=== PATIENT | male | born 1975 | race Caucasian/White ===

== ENCOUNTER 2019-02-18 14:40 | Emergency (ER) | payer SELFPAY ==
[~2019-02-18] VITALS: Ht 185.4 cm; Wt 113.4 kg
[2019-02-18] MEDS ORDERED: DOPamine 1600mCg/ml 400MG/250ml NSorD5 KIT/BAG IV ONE (14:41)
[2019-02-18] MEDS ORDERED: EPINEPHrine HCL 1 MG/10 ML SYRG IV ONE (14:41)
[2019-02-18] MEDS ORDERED: CALCIUM CHLOR(10%) 100MG/ML 10ML SYRINGE IV ONE (14:41)
[2019-02-18] MEDS ORDERED: SODIUM BICARBONATE 8.4% INJ 50ML SYRINGE IV ONE (14:41)
[2019-02-18] MEDS ORDERED: SODIUM BICARBONATE 8.4% INJ 50ML SYRINGE ONE (14:45)
[2019-02-18 17:34] VITALS: BP 0/0
== END 2019-02-18 19:21 | disposition expired ==
LOC: EDBD 14:40 → ER 14:40
DX: I46.9 Cardiac arrest, cause unspecified (principal); S62.102A Fracture of unspecified carpal bone, left wrist, initial encounter for closed fracture; S62.101A Fracture of unspecified carpal bone, right wrist, initial encounter for closed fracture; S82.002A Unspecified fracture of left patella, initial encounter for closed fracture; V23.4XXA Motorcycle driver injured in collision with car, pick-up truck or van in traffic accident, initial encounter; Y93.89 Activity, other specified; Y99.8 Other external cause status; Y92.410 Unspecified street and highway as the place of occurrence of the external cause
CPT/HCPCS: 31500; 92950; 99285; J0171; J1265